=== PATIENT | male | born 1955 | race Caucasian/White ===

== ENCOUNTER → 2016-10-18 | Outpatient (REF) | payer OTHER, MEDICAID ==
[2016-10-18 19:04] LABS: ALBUMIN 3.5 GM/DL (3.2-5.2); ALBUMIN/GLOBULIN RATIO 0.95 (1.00-1.93); ALKALINE PHOSPHATASE 98 U/L (45-117); ALT/SGPT 34 U/L (12-78); ANION GAP 10 MEQ/L (8-16); AST/SGOT 39 U/L (15-37); BILIRUBIN,TOTAL 0.6 MG/DL (0.2-1.0); BLOOD UREA NITROGEN 9 MG/DL (7-18); CARBON DIOXIDE LEVEL 27 MEQ/L (21-32); CHLORIDE LEVEL 104 MEQ/L (98-107); CREATININE FOR GFR 0.54 MG/DL (0.70-1.30); GLOMERULAR FILTRATION RATE > 60.0 (>56); GLUCOSE, FASTING 98 MG/DL (70-105); POTASSIUM SERUM 4.3 MEQ/L (3.5-5.1); SODIUM LEVEL 141 MEQ/L (136-145); TOTAL PROTEIN 7.2 GM/DL (6.4-8.2)
[2016-10-18 19:24] LABS: BASO # 0.1 K/mm3 (0.0-0.2); BASO % 1.9 % (0.0-1.0); EOS # 0.1 K/mm3 (0.0-0.50); EOS % 1.9 % (0.0-3.0); LARGE UNSTAINED CELL # 0.2 K/mm3 (0.0-0.4); LARGE UNSTAINED CELL % 2.4 % (0.0-4.0); LYMPH # 1.8 K/mm3 (1.5-4.5); LYMPH % 24.7 % (24.0-44.0); MEAN CORPUSCULAR HEMOGLOBIN 35.7 pg (27.0-33.0); MEAN CORPUSCULAR HGB CONC 33.1 g/dl (32.0-36.5); MONO # 0.8 K/mm3 (0.0-0.8); MONO % 12.2 % (0.0-5.0); NEUTROPHILS # 3.9 K/mm3 (1.8-7.7); NEUTROPHILS % 56.9 % (36.0-66.0); PLATELET COUNT, AUTOMATED 204 k/mm3 (150-450); RED CELL DISTRIBUTION WIDTH 12.3 % (11.5-14.5); WHITE BLOOD COUNT 6.8 K/mm3 (4.0-10.0)
== END ==
LOC: M LAB REF 14:10
PROVIDERS: ATTEND Family Medicine Addiction Medicine
DX: S40.029A Contusion of unspecified upper arm, initial encounter (principal); X58.XXXA Exposure to other specified factors, initial encounter; Y92.89 Other specified places as the place of occurrence of the external cause; Y93.89 Activity, other specified; Y99.8 Other external cause status

== ENCOUNTER 2017-09-26 11:12 | Inpatient (IN) | payer MEDICARE, SELFPAY ==
[2017-09-26] MEDS: METOPROLOL TART 25 MG TABLET PO ×2 (11:27→22:22)
[2017-09-26] MEDS: METOPROLOL 5 MG/5 ML VIAL IV ×3 (11:31→12:19)
[2017-09-26 11:35] LABS: BASO # 0.1 10^3/uL (0.0-0.2); BASO % 0.4 % (0.0-1.0); EOS % 0.1 % (0.0-3.0); HEMATOCRIT 41.9 % (42.0-52.0); IMMATURE GRANULOCYTE % 1.3 % (0-3.0); LYMPH # 0.9 10^3/uL (1.5-4.5); LYMPH % 4.1 % (24.0-44.0); MEAN CORPUSCULAR HEMOGLOBIN 35.6 pg (27.0-33.0); MEAN CORPUSCULAR HGB CONC 35.8 g/dl (32.0-36.5); MEAN CORPUSCULAR VOLUME 99.5 fl (80.0-96.0); MONO % 10.1 % (0.0-5.0); NEUTROPHILS # 17.5 10^3/uL (1.8-7.7); PLATELET COUNT, AUTOMATED 205 10^3/uL (150-450); RED BLOOD COUNT 4.21 10^6/uL (4.30-6.10); RED CELL DISTRIBUTION WIDTH 11.1 % (11.5-14.5); WHITE BLOOD COUNT 20.9 10^3/uL (4.0-10.0)
[2017-09-26 11:57] LABS: AMMONIA 25 uMOL/L (<32)
[2017-09-26 11:57] LABS: ALBUMIN 2.4 GM/DL (3.2-5.2); ALKALINE PHOSPHATASE 91 U/L (45-117); ALT/SGPT 40 U/L (12-78); ANION GAP 24 MEQ/L (8-16); AST/SGOT 97 U/L (7-37); BILIRUBIN,DIRECT 0.6 MG/DL (0.0-0.2); BILIRUBIN,TOTAL 1.1 MG/DL (0.2-1.0); BLOOD UREA NITROGEN 15 MG/DL (7-18); CARBON DIOXIDE LEVEL 16 MEQ/L (21-32); CHLORIDE LEVEL 86 MEQ/L (98-107); CPK CREATINE PHOSPHOKINASE 482 U/L (39-308); CREATININE FOR GFR 1.17 MG/DL (0.70-1.30); ETHYL ALCOHOL (ETHANOL) 0.007 % (0.000-0.010); GLOMERULAR FILTRATION RATE > 60.0 (>49); GLUCOSE, FASTING 112 MG/DL (70-100); MONO # 2.1 10^3/uL (0.0-0.8); POSITIVE DIFF POS FLAG; POTASSIUM SERUM 3.1 MEQ/L (3.5-5.1); SODIUM LEVEL 126 MEQ/L (136-145); TOTAL PROTEIN 6.4 GM/DL (6.4-8.2); TROPONIN I 0.03 NG/ML (< 0.10)
[2017-09-26] MEDS: NS 1,000 ML IV ×2 (12:00→12:45)
[2017-09-26 12:03] LABS: CK-MB VALUE MASS 5.4 NG/ML (<3.6); MB/CK RELATIVE INDEX 1.12 (< OR =4)
[2017-09-26] MEDS: DIGOXIN INJ 0.5 MG/2 ML AMP (J1160) IV (12:32)
[2017-09-26 14:00] LABS: ABG BASE EXCESS -0.4 (-2.0-2.0); ABG HCO3 22.6 MEQ/L (22.0-26.0); ABG O2 SATURATION 96.2 % (95.0-99.0); ABG PARTIAL PRESSURE CO2 32.5 mmHg (35.0-45.0); ABG PARTIAL PRESSURE O2 84.7 mmHg (75.0-100.0); ABG STANDARD HCO3 24.2 MEQ/L (22.0-26.0); ABG TOTAL CO2 23.6 MEQ/L (23.0-31.0); ABG pH (ARTERIAL) 7.461 UNITS (7.350-7.450)
[2017-09-26 14:08] LABS: TROPONIN I 0.05 NG/ML (< 0.10)
[2017-09-26 14:20] LABS: CK-MB VALUE MASS 17.6 NG/ML (<3.6); CPK CREATINE PHOSPHOKINASE 2928 U/L (39-308)
[2017-09-26 14:26] LABS: LACTIC ACID SEPSIS PROTOCOL 3.2 MMOL/L (0.4-2.0)
[2017-09-26] MEDS: POTASSIUM CHLORIDE 10 MEQ SR TABLET PO ×2 (14:44→22:17)
[2017-09-26] MEDS: PIPERACILLIN/TAZOBACTAM SOD 3.375 GM in D5W MINI-BAG PLUS 50 ML IV (14:45)
[2017-09-26] MEDS ORDERED: IPRATROPIUM 0.5MG/ALBUTEROL 2.5MG INH SOL UD 3ML (DUONEB)(J7620) NEB (15:30)
[2017-09-26] MEDS ORDERED: OXAZEPAM 10 MG CAP PO (16:00)
[2017-09-26] MEDS ORDERED: ONDANSETRON 4MG/2ML VIAL (J2405) IV (16:00)
[2017-09-26] MEDS: SODIUM CHLORIDE HYPERTONIC 3% 15ML NEB SOL NEB ×3 (16:00→17:33)
[2017-09-26] MEDS: MULTIVITAMIN -ADULT INJECTION 10 ML, THIAMINE INJection 100 MG, FOLIC ACID 1 MG in NS 1... IV (16:56)
[2017-09-26] MEDS ORDERED: MOXIFLOXACIN HCL 400 MG in APPROPRIATE DILUENT 1 EA IV (17:00)
[2017-09-26 17:16] LABS: APPEARANCE, URINE CLEAR (CLEAR); BACTERIA, URINE AUTO NEGATIVE (NEGATIVE); BILIRUBIN, URINE AUTO NEGATIVE (NEGATIVE); BLOOD, URINE BLOOD 3+ (NEGATIVE); COLOR, URINE YELLOW (YELLOW); GLUCOSE, URINE (UA) AUTO NEGATIVE (NEGATIVE); KETONE, URINE AUTO NEGATIVE (NEGATIVE); LEUKOCYTE ESTERASE, URINE AUTO NEGATIVE (NEGATIVE); NITRITE, URINE AUTO NEGATIVE (NEGATIVE); PROTEIN, URINE AUTO NEGATIVE (NEGATIVE); RBC, URINE AUTO 1 /HPF (0-3); SPECIFIC GRAVITY URINE AUTO 1.004 (1.002-1.035); SQUAMOUS EPITHELIAL CELL UR AU 0 /HPF (0-6); UROBILINOGEN, URINE AUTO 0.2 mg/dL (0.0-2.0); WBC, URINE AUTO 1 /HPF (0-3)
[2017-09-26 17:23] LABS: OSMOLALITY URINE 179 MOSM/KG (500-800)
[2017-09-26 17:36] LABS: AMPHETAMINES LEVEL URINE NEGATIVE (NEGATIVE); BARBITURATES URINE NEGATIVE (NEGATIVE); BENZODIAZEPINES URINE NEGATIVE (NEGATIVE); CANNABINOIDS URINE NEGATIVE (NEGATIVE); CHLORIDE,RANDOM URINE 19 MEQ/L; COCAINE METABOLITE URINE NEGATIVE (NEGATIVE); CREATININE,RANDOM URINE 23.2 MG/DL; METHADONE URINE NEGATIVE (NEGATIVE); OPIATES URINE NEGATIVE (NEGATIVE); PHENCYCLIDINE URINE NEGATIVE (NEGATIVE); POTASSIUM RANDOM URINE 11.2 MEQ/L; SODIUM,RANDOM URINE 12 MEQ/L; URIC ACID,RANDOM URINE 76.7 MG/DL
[2017-09-26] MEDS: OXAZEPAM 10 MG CAP PO (18:00)
[2017-09-26 18:38] LABS: ANION GAP 11 MEQ/L (8-16); BLOOD UREA NITROGEN 14 MG/DL (7-18); CALCIUM LEVEL 8.1 MG/DL (8.8-10.2); CARBON DIOXIDE LEVEL 27 MEQ/L (21-32); CHLORIDE LEVEL 92 MEQ/L (98-107); CREATININE FOR GFR 0.74 MG/DL (0.70-1.30); GLOMERULAR FILTRATION RATE > 60.0 (>49); GLUCOSE, FASTING 97 MG/DL (70-100); MAGNESIUM LEVEL 2.6 MG/DL (1.8-2.4); POTASSIUM SERUM 3.3 MEQ/L (3.5-5.1); SODIUM LEVEL 130 MEQ/L (136-145); TROPONIN I 0.05 NG/ML (< 0.10)
[2017-09-26 18:44] LABS: CK-MB VALUE MASS 31.7 NG/ML (<3.6)
[2017-09-26 18:47] LABS: CPK CREATINE PHOSPHOKINASE 4499 U/L (39-308)
[2017-09-26] MEDS: IPRATROPIUM 0.5MG/ALBUTEROL 2.5MG INH SOL UD 3ML (DUONEB)(J7620) NEB (19:54)
[2017-09-26] MEDS: MOXIFLOXACIN HCL 400 MG in APPROPRIATE DILUENT 1 EA IV (22:16)
[2017-09-26] MEDS: ASPIRIN 81 MG ENTERIC TAB PO (22:16)
[2017-09-26] MEDS: SENOKOT S TAB PO ×2 (22:20→22:33)
[2017-09-26] MEDS: HEPARIN SOD (PORCINE) 5000 UNITS/ML VIAL SC (22:23)
[2017-09-26] MEDS: NICOTINE 14 MG/24 HR TRANSDERMAL TD (22:23)
[2017-09-26 23:03] LABS: ANION GAP 9 MEQ/L (8-16); BLOOD UREA NITROGEN 13 MG/DL (7-18); CALCIUM LEVEL 8.4 MG/DL (8.8-10.2); CARBON DIOXIDE LEVEL 29 MEQ/L (21-32); CHLORIDE LEVEL 93 MEQ/L (98-107); CREATININE FOR GFR 0.61 MG/DL (0.70-1.30); GLOMERULAR FILTRATION RATE > 60.0 (>49); GLUCOSE, FASTING 84 MG/DL (70-100); MAGNESIUM LEVEL 2.4 MG/DL (1.8-2.4); POTASSIUM SERUM 3.5 MEQ/L (3.5-5.1); SODIUM LEVEL 131 MEQ/L (136-145)
[2017-09-27] MEDS: OXAZEPAM 10 MG CAP PO ×2 (00:02→06:06)
[2017-09-27] MEDS: KCL 40MEQ in NS 1000ML 1,000 ML IV (00:20)
[2017-09-27] MEDS: IPRATROPIUM 0.5MG/ALBUTEROL 2.5MG INH SOL UD 3ML (DUONEB)(J7620) NEB ×4 (02:20→19:58)
[2017-09-27 02:45] LABS: BLOOD UREA NITROGEN 15 MG/DL (7-18); CALCIUM LEVEL 8.1 MG/DL (8.8-10.2); CARBON DIOXIDE LEVEL 26 MEQ/L (21-32); CHLORIDE LEVEL 94 MEQ/L (98-107); CREATININE FOR GFR 0.62 MG/DL (0.70-1.30); GLUCOSE, FASTING 74 MG/DL (70-100); MAGNESIUM LEVEL 2.2 MG/DL (1.8-2.4); POTASSIUM SERUM 3.9 MEQ/L (3.5-5.1); TROPONIN I 0.04 NG/ML (< 0.10)
[2017-09-27 02:55] LABS: CK-MB VALUE MASS 32.1 NG/ML (<3.6); CPK CREATINE PHOSPHOKINASE 4254 U/L (39-308); MB/CK RELATIVE INDEX 0.75 (< OR =4)
[2017-09-27] MEDS: METOPROLOL TART 25 MG TABLET PO ×3 (06:05→21:22)
[2017-09-27 06:46] LABS: HEMATOCRIT 39.3 % (42.0-52.0); HEMOGLOBIN 13.7 g/dl (13.5-17.5); MEAN CORPUSCULAR HEMOGLOBIN 35.9 pg (27.0-33.0); MEAN CORPUSCULAR HGB CONC 34.9 g/dl (32.0-36.5); MEAN CORPUSCULAR VOLUME 102.9 fl (80.0-96.0); PLATELET COUNT, AUTOMATED 134 10^3/uL (150-450); RED BLOOD COUNT 3.82 10^6/uL (4.30-6.10); WHITE BLOOD COUNT 14.5 10^3/uL (4.0-10.0)
[2017-09-27 07:10] LABS: ANION GAP 10 MEQ/L (8-16); SODIUM LEVEL 130 MEQ/L (136-145)
[2017-09-27] MEDS: SODIUM CHLORIDE HYPERTONIC 3% 15ML NEB SOL NEB ×3 (08:07→15:00)
[2017-09-27 08:30] LABS: ALBUMIN 1.9 GM/DL (3.2-5.2); ALBUMIN/GLOBULIN RATIO 0.61 (1.00-1.93); ALKALINE PHOSPHATASE 68 U/L (45-117); ALT/SGPT 52 U/L (12-78); ANION GAP 13 MEQ/L (8-16); AST/SGOT 188 U/L (7-37); BILIRUBIN,TOTAL 0.7 MG/DL (0.2-1.0); BLOOD UREA NITROGEN 13 MG/DL (7-18); CALCIUM LEVEL 7.4 MG/DL (8.8-10.2); CARBON DIOXIDE LEVEL 23 MEQ/L (21-32); CHLORIDE LEVEL 98 MEQ/L (98-107); CREATININE FOR GFR 0.38 MG/DL (0.70-1.30); GLOMERULAR FILTRATION RATE > 60.0 (>49); GLUCOSE, FASTING 75 MG/DL (70-100); MAGNESIUM LEVEL 2.3 MG/DL (1.8-2.4); POTASSIUM SERUM 3.4 MEQ/L (3.5-5.1); SODIUM LEVEL 134 MEQ/L (136-145)
[2017-09-27] MEDS: HEPARIN SOD (PORCINE) 5000 UNITS/ML VIAL SC ×2 (09:00→20:23)
[2017-09-27] MEDS ORDERED: EPINEPHrine 1MG/10ML SYRINGE 1.5IN As Ordered (09:39)
[2017-09-27] MEDS ORDERED: LIDOCAINE 2% MDV 20 ML VIAL As Ordered (09:39)
[2017-09-27] MEDS ORDERED: MORPHINE 10 MG/ML 1ML VIAL (J2270) As Ordered (10:19)
[2017-09-27] MEDS ORDERED: MIDAZOLAM INJ 2 MG/2 ML VIAL (J2250) As Ordered ×4 (10:20→10:21)
[2017-09-27 10:50] LABS: ANION GAP 10 MEQ/L (8-16); BLOOD UREA NITROGEN 12 MG/DL (7-18); CALCIUM LEVEL 7.6 MG/DL (8.8-10.2); CARBON DIOXIDE LEVEL 24 MEQ/L (21-32); CHLORIDE LEVEL 98 MEQ/L (98-107); CREATININE FOR GFR 0.45 MG/DL (0.70-1.30); GLOMERULAR FILTRATION RATE > 60.0 (>49); GLUCOSE, FASTING 80 MG/DL (70-100); MAGNESIUM LEVEL 2.3 MG/DL (1.8-2.4); POTASSIUM SERUM 3.7 MEQ/L (3.5-5.1); SODIUM LEVEL 132 MEQ/L (136-145); TROPONIN I 0.02 NG/ML (< 0.10)
[2017-09-27 11:00] LABS: CK-MB VALUE MASS 17.5 NG/ML (<3.6); CPK CREATINE PHOSPHOKINASE 2019 U/L (39-308); MB/CK RELATIVE INDEX 0.86 (< OR =4)
[2017-09-27] MEDS: LIDOCAINE 1% SDV 5 ML VIAL XX (11:47)
[2017-09-27] MEDS: ALBUTEROL SULFATE 2.5 MG/0.5 ML INH NEB SOLN INH (11:47)
[2017-09-27] MEDS: MIDAZOLAM INJ 2 MG/2 ML VIAL (J2250) IV (12:25)
[2017-09-27] MEDS: DIGOXIN INJ 0.5 MG/2 ML AMP (J1160) IV ×2 (13:34→15:22)
[2017-09-27 14:58] LABS: ANION GAP 12 MEQ/L (8-16); BLOOD UREA NITROGEN 14 MG/DL (7-18); CALCIUM LEVEL 8.7 MG/DL (8.8-10.2); CARBON DIOXIDE LEVEL 26 MEQ/L (21-32); CHLORIDE LEVEL 96 MEQ/L (98-107); CREATININE FOR GFR 0.61 MG/DL (0.70-1.30); GLOMERULAR FILTRATION RATE > 60.0 (>49); GLUCOSE, FASTING 91 MG/DL (70-100); MAGNESIUM LEVEL 2.5 MG/DL (1.8-2.4); POTASSIUM SERUM 3.7 MEQ/L (3.5-5.1); SODIUM LEVEL 134 MEQ/L (136-145)
[2017-09-27] MEDS: NICOTINE 14 MG/24 HR TRANSDERMAL TD (15:10)
[2017-09-27] MEDS: THIAMINE 100 MG TAB PO (15:11)
[2017-09-27] MEDS: ASPIRIN 81 MG ENTERIC TAB PO (15:11)
[2017-09-27] MEDS: FOLIC ACID 1 MG TAB PO (15:11)
[2017-09-27] MEDS: MULTIVITAMINS/MINERALS THERAP 1 TAB PO (15:11)
[2017-09-27] MEDS: SENOKOT S TAB PO ×2 (15:12→20:23)
[2017-09-27] MEDS: PIPERACILLIN/TAZOBACTAM SOD 3.375 GM in D5W MINI-BAG PLUS 50 ML IV ×2 (15:19→20:22)
[2017-09-27 18:39] LABS: ANION GAP 10 MEQ/L (8-16); BLOOD UREA NITROGEN 12 MG/DL (7-18); CALCIUM LEVEL 8.5 MG/DL (8.8-10.2); CARBON DIOXIDE LEVEL 29 MEQ/L (21-32); CHLORIDE LEVEL 94 MEQ/L (98-107); CREATININE FOR GFR 0.54 MG/DL (0.70-1.30); GLOMERULAR FILTRATION RATE > 60.0 (>49); GLUCOSE, FASTING 117 MG/DL (70-100); MAGNESIUM LEVEL 2.2 MG/DL (1.8-2.4); POTASSIUM SERUM 3.6 MEQ/L (3.5-5.1); SODIUM LEVEL 133 MEQ/L (136-145)
[2017-09-27 22:03] LABS: ANION GAP 8 MEQ/L (8-16); BLOOD UREA NITROGEN 12 MG/DL (7-18); CALCIUM LEVEL 7.8 MG/DL (8.8-10.2); CARBON DIOXIDE LEVEL 29 MEQ/L (21-32); CHLORIDE LEVEL 96 MEQ/L (98-107); CREATININE FOR GFR 0.63 MG/DL (0.70-1.30); GLOMERULAR FILTRATION RATE > 60.0 (>49); GLUCOSE, FASTING 153 MG/DL (70-100); MAGNESIUM LEVEL 2.1 MG/DL (1.8-2.4); POTASSIUM SERUM 3.3 MEQ/L (3.5-5.1); SODIUM LEVEL 133 MEQ/L (136-145)
[2017-09-27] MEDS: POTASSIUM CHLORIDE 10 MEQ SR TABLET PO (22:19)
[2017-09-28] MEDS: IPRATROPIUM 0.5MG/ALBUTEROL 2.5MG INH SOL UD 3ML (DUONEB)(J7620) NEB ×4 (01:18→21:00)
[2017-09-28] MEDS: PIPERACILLIN/TAZOBACTAM SOD 3.375 GM in D5W MINI-BAG PLUS 50 ML IV ×4 (01:52→20:23)
[2017-09-28] MEDS: METOPROLOL TART 25 MG TABLET PO ×3 (05:10→22:32)
[2017-09-28 05:50] LABS: HEMATOCRIT 35.9 % (42.0-52.0); HEMOGLOBIN 12.7 g/dl (13.5-17.5); MEAN CORPUSCULAR HEMOGLOBIN 36.1 pg (27.0-33.0); MEAN CORPUSCULAR HGB CONC 35.4 g/dl (32.0-36.5); PLATELET COUNT, AUTOMATED 158 10^3/uL (150-450); RED BLOOD COUNT 3.52 10^6/uL (4.30-6.10); RED CELL DISTRIBUTION WIDTH 11.1 % (11.5-14.5); WHITE BLOOD COUNT 10.3 10^3/uL (4.0-10.0)
[2017-09-28 06:07] LABS: ALBUMIN 1.8 GM/DL (3.2-5.2); ALBUMIN/GLOBULIN RATIO 0.49 (1.00-1.93); ALKALINE PHOSPHATASE 85 U/L (45-117); ALT/SGPT 66 U/L (12-78); ANION GAP 8 MEQ/L (8-16); AST/SGOT 159 U/L (7-37); BILIRUBIN,TOTAL 0.6 MG/DL (0.2-1.0); BLOOD UREA NITROGEN 7 MG/DL (7-18); CALCIUM LEVEL 7.9 MG/DL (8.8-10.2); CARBON DIOXIDE LEVEL 27 MEQ/L (21-32); CHLORIDE LEVEL 96 MEQ/L (98-107); CREATININE FOR GFR 0.38 MG/DL (0.70-1.30); GLOMERULAR FILTRATION RATE > 60.0 (>49); GLUCOSE, FASTING 101 MG/DL (70-100); SODIUM LEVEL 131 MEQ/L (136-145); TOTAL PROTEIN 5.5 GM/DL (6.4-8.2)
[2017-09-28 06:17] LABS: POTASSIUM SERUM 2.9 MEQ/L (3.5-5.1)
[2017-09-28] MEDS: POTASSIUM CHLORIDE 10 MEQ SR TABLET PO ×2 (06:42→09:50)
[2017-09-28] MEDS ORDERED: SLF 3 ML SYR IV (08:45)
[2017-09-28] MEDS: SENOKOT S TAB PO ×2 (08:57→20:23)
[2017-09-28] MEDS: ASPIRIN 81 MG ENTERIC TAB PO (08:57)
[2017-09-28] MEDS: THIAMINE 100 MG TAB PO (08:58)
[2017-09-28] MEDS: MULTIVITAMINS/MINERALS THERAP 1 TAB PO (08:58)
[2017-09-28] MEDS: NICOTINE 14 MG/24 HR TRANSDERMAL TD (08:58)
[2017-09-28] MEDS: FOLIC ACID 1 MG TAB PO (08:58)
[2017-09-28] MEDS: HEPARIN SOD (PORCINE) 5000 UNITS/ML VIAL SC ×2 (08:58→20:23)
[2017-09-28] MEDS: DIGOXIN 0.125 MG TAB PO (09:50)
[2017-09-28] MEDS: SLF 3 ML SYR IV ×2 (13:57→22:31)
[2017-09-29] MEDS: PIPERACILLIN/TAZOBACTAM SOD 3.375 GM in D5W MINI-BAG PLUS 50 ML IV ×4 (01:50→20:12)
[2017-09-29] MEDS: IPRATROPIUM 0.5MG/ALBUTEROL 2.5MG INH SOL UD 3ML (DUONEB)(J7620) NEB ×4 (01:53→20:30)
[2017-09-29] MEDS: LORazepam 2 MG TAB PO (02:13)
[2017-09-29] MEDS: SLF 3 ML SYR IV ×3 (05:14→22:06)
[2017-09-29] MEDS: METOPROLOL TART 25 MG TABLET PO ×3 (05:14→22:06)
[2017-09-29 05:37] LABS: HEMATOCRIT 36.4 % (42.0-52.0); HEMOGLOBIN 12.9 g/dl (13.5-17.5); MEAN CORPUSCULAR HEMOGLOBIN 35.4 pg (27.0-33.0); MEAN CORPUSCULAR HGB CONC 35.4 g/dl (32.0-36.5); PLATELET COUNT, AUTOMATED 196 10^3/uL (150-450); RED BLOOD COUNT 3.64 10^6/uL (4.30-6.10); RED CELL DISTRIBUTION WIDTH 10.6 % (11.5-14.5); WHITE BLOOD COUNT 9.7 10^3/uL (4.0-10.0)
[2017-09-29 06:08] LABS: ALBUMIN 1.8 GM/DL (3.2-5.2); ALBUMIN/GLOBULIN RATIO 0.46 (1.00-1.93); ALKALINE PHOSPHATASE 90 U/L (45-117); ALT/SGPT 71 U/L (12-78); ANION GAP 8 MEQ/L (8-16); AST/SGOT 126 U/L (7-37); BILIRUBIN,TOTAL 0.6 MG/DL (0.2-1.0); BLOOD UREA NITROGEN 4 MG/DL (7-18); C REACTIVE PROTEIN QUANTITATIV 9.11 MG/DL (0.00-0.30); CALCIUM LEVEL 8.2 MG/DL (8.8-10.2); CARBON DIOXIDE LEVEL 31 MEQ/L (21-32); CHLORIDE LEVEL 94 MEQ/L (98-107); GLOMERULAR FILTRATION RATE > 60.0 (>49); GLUCOSE, FASTING 99 MG/DL (70-100); POTASSIUM SERUM 3.2 MEQ/L (3.5-5.1); SODIUM LEVEL 133 MEQ/L (136-145); TOTAL PROTEIN 5.7 GM/DL (6.4-8.2)
[2017-09-29] MEDS: NEUTRA-PHOS 1.25 GM PACKET PO ×3 (08:20→17:08)
[2017-09-29] MEDS: HEPARIN SOD (PORCINE) 5000 UNITS/ML VIAL SC ×2 (08:20→20:13)
[2017-09-29] MEDS: NICOTINE 14 MG/24 HR TRANSDERMAL TD (08:20)
[2017-09-29] MEDS: FOLIC ACID 1 MG TAB PO (08:21)
[2017-09-29] MEDS: DIGOXIN 0.125 MG TAB PO (08:21)
[2017-09-29] MEDS: ASPIRIN 81 MG ENTERIC TAB PO (08:21)
[2017-09-29] MEDS: SENOKOT S TAB PO ×2 (08:21→20:13)
[2017-09-29] MEDS: POTASSIUM CHLORIDE 10 MEQ SR TABLET PO ×2 (08:21→20:13)
[2017-09-29] MEDS: MULTIVITAMINS/MINERALS THERAP 1 TAB PO (08:21)
[2017-09-29] MEDS: THIAMINE 100 MG TAB PO (08:21)
[2017-09-30] MEDS: IPRATROPIUM 0.5MG/ALBUTEROL 2.5MG INH SOL UD 3ML (DUONEB)(J7620) NEB ×4 (01:43→19:29)
[2017-09-30] MEDS: PIPERACILLIN/TAZOBACTAM SOD 3.375 GM in D5W MINI-BAG PLUS 50 ML IV ×4 (01:50→21:29)
[2017-09-30 05:11] LABS: HEMATOCRIT 37.9 % (42.0-52.0); MEAN CORPUSCULAR HEMOGLOBIN 35.5 pg (27.0-33.0); MEAN CORPUSCULAR HGB CONC 34.3 g/dl (32.0-36.5); MEAN CORPUSCULAR VOLUME 103.6 fl (80.0-96.0); PLATELET COUNT, AUTOMATED 232 10^3/uL (150-450); RED BLOOD COUNT 3.66 10^6/uL (4.30-6.10); WHITE BLOOD COUNT 8.6 10^3/uL (4.0-10.0)
[2017-09-30 05:29] LABS: ALBUMIN 1.8 GM/DL (3.2-5.2); ALBUMIN/GLOBULIN RATIO 0.44 (1.00-1.93); ALKALINE PHOSPHATASE 88 U/L (45-117); ALT/SGPT 66 U/L (12-78); ANION GAP 6 MEQ/L (8-16); AST/SGOT 80 U/L (7-37); BILIRUBIN,TOTAL 0.4 MG/DL (0.2-1.0); BLOOD UREA NITROGEN 4 MG/DL (7-18); C REACTIVE PROTEIN QUANTITATIV 7.13 MG/DL (0.00-0.30); CALCIUM LEVEL 8.2 MG/DL (8.8-10.2); CARBON DIOXIDE LEVEL 33 MEQ/L (21-32); CHLORIDE LEVEL 96 MEQ/L (98-107); CREATININE FOR GFR 0.48 MG/DL (0.70-1.30); GLOMERULAR FILTRATION RATE > 60.0 (>49); GLUCOSE, FASTING 95 MG/DL (70-100); POTASSIUM SERUM 3.5 MEQ/L (3.5-5.1); SODIUM LEVEL 135 MEQ/L (136-145); TOTAL PROTEIN 5.9 GM/DL (6.4-8.2)
[2017-09-30] MEDS: SLF 3 ML SYR IV ×3 (05:53→21:32)
[2017-09-30] MEDS: METOPROLOL TART 25 MG TABLET PO ×2 (05:53→13:31)
[2017-09-30] MEDS: ASPIRIN 81 MG ENTERIC TAB PO (09:14)
[2017-09-30] MEDS: HEPARIN SOD (PORCINE) 5000 UNITS/ML VIAL SC ×2 (09:14→21:31)
[2017-09-30] MEDS: NEUTRA-PHOS 1.25 GM PACKET PO ×3 (09:14→18:07)
[2017-09-30] MEDS: THIAMINE 100 MG TAB PO (09:15)
[2017-09-30] MEDS: DIGOXIN 0.125 MG TAB PO (09:15)
[2017-09-30] MEDS: SENOKOT S TAB PO ×2 (09:15→21:30)
[2017-09-30] MEDS: FOLIC ACID 1 MG TAB PO (09:15)
[2017-09-30] MEDS: POTASSIUM CHLORIDE 10 MEQ SR TABLET PO ×2 (09:15→21:30)
[2017-09-30] MEDS: MULTIVITAMINS/MINERALS THERAP 1 TAB PO (09:15)
[2017-09-30] MEDS: NICOTINE 14 MG/24 HR TRANSDERMAL TD (09:16)
[2017-09-30 09:32] LABS: DIGOXIN LEVEL 0.7 NG/ML (0.5-2.0)
[2017-09-30] MEDS: METOPROLOL TART 50 MG TAB PO (21:30)
[2017-10-01] MEDS: PIPERACILLIN/TAZOBACTAM SOD 3.375 GM in D5W MINI-BAG PLUS 50 ML IV ×2 (01:25→08:45)
[2017-10-01] MEDS: IPRATROPIUM 0.5MG/ALBUTEROL 2.5MG INH SOL UD 3ML (DUONEB)(J7620) NEB ×4 (02:36→21:04)
[2017-10-01] MEDS: SLF 3 ML SYR IV ×3 (05:34→20:35)
[2017-10-01 07:15] LABS: HEMATOCRIT 38.3 % (42.0-52.0); HEMOGLOBIN 13.3 g/dl (13.5-17.5); MEAN CORPUSCULAR HGB CONC 34.7 g/dl (32.0-36.5); MEAN CORPUSCULAR VOLUME 100.8 fl (80.0-96.0); PLATELET COUNT, AUTOMATED 281 10^3/uL (150-450); RED CELL DISTRIBUTION WIDTH 11.3 % (11.5-14.5); WHITE BLOOD COUNT 8.5 10^3/uL (4.0-10.0)
[2017-10-01 07:33] LABS: ALBUMIN 1.9 GM/DL (3.2-5.2); ALBUMIN/GLOBULIN RATIO 0.43 (1.00-1.93); ALKALINE PHOSPHATASE 87 U/L (45-117); ALT/SGPT 59 U/L (12-78); ANION GAP 9 MEQ/L (8-16); AST/SGOT 60 U/L (7-37); BILIRUBIN,TOTAL 0.4 MG/DL (0.2-1.0); BLOOD UREA NITROGEN 2 MG/DL (7-18); C REACTIVE PROTEIN QUANTITATIV 5.61 MG/DL (0.00-0.30); CALCIUM LEVEL 8.6 MG/DL (8.8-10.2); CARBON DIOXIDE LEVEL 29 MEQ/L (21-32); CHLORIDE LEVEL 99 MEQ/L (98-107); CREATININE FOR GFR 0.42 MG/DL (0.70-1.30); GLOMERULAR FILTRATION RATE > 60.0 (>49); GLUCOSE, FASTING 97 MG/DL (70-100); POTASSIUM SERUM 3.9 MEQ/L (3.5-5.1); SODIUM LEVEL 137 MEQ/L (136-145); TOTAL PROTEIN 6.3 GM/DL (6.4-8.2)
[2017-10-01] MEDS: NEUTRA-PHOS 1.25 GM PACKET PO ×3 (08:45→18:02)
[2017-10-01] MEDS: THIAMINE 100 MG TAB PO (08:46)
[2017-10-01] MEDS: NICOTINE 14 MG/24 HR TRANSDERMAL TD (08:46)
[2017-10-01] MEDS: SENOKOT S TAB PO ×2 (08:46→20:34)
[2017-10-01] MEDS: MULTIVITAMINS/MINERALS THERAP 1 TAB PO (08:46)
[2017-10-01] MEDS: POTASSIUM CHLORIDE 10 MEQ SR TABLET PO (08:46)
[2017-10-01] MEDS: ASPIRIN 81 MG ENTERIC TAB PO (08:46)
[2017-10-01] MEDS: METOPROLOL TART 50 MG TAB PO ×2 (08:46→20:35)
[2017-10-01] MEDS: HEPARIN SOD (PORCINE) 5000 UNITS/ML VIAL SC ×2 (08:47→20:35)
[2017-10-01] MEDS: FOLIC ACID 1 MG TAB PO (08:47)
[2017-10-01] MEDS: DIGOXIN 0.125 MG TAB PO (08:47)
[2017-10-01] MEDS: ACETAMINOPHEN 500 MG TAB PO (12:34)
[2017-10-01] MEDS: AUGMENTIN 875 MG TAB PO (20:34)
[2017-10-02] MEDS: IPRATROPIUM 0.5MG/ALBUTEROL 2.5MG INH SOL UD 3ML (DUONEB)(J7620) NEB ×5 (01:31→20:57)
[2017-10-02 05:59] LABS: HEMATOCRIT 36.9 % (42.0-52.0); MEAN CORPUSCULAR HEMOGLOBIN 35.7 pg (27.0-33.0); MEAN CORPUSCULAR HGB CONC 35.2 g/dl (32.0-36.5); MEAN CORPUSCULAR VOLUME 101.4 fl (80.0-96.0); PLATELET COUNT, AUTOMATED 302 10^3/uL (150-450); RED BLOOD COUNT 3.64 10^6/uL (4.30-6.10); RED CELL DISTRIBUTION WIDTH 11.5 % (11.5-14.5); WHITE BLOOD COUNT 11.4 10^3/uL (4.0-10.0)
[2017-10-02 06:21] LABS: ALBUMIN 1.9 GM/DL (3.2-5.2); ALBUMIN/GLOBULIN RATIO 0.45 (1.00-1.93); ALKALINE PHOSPHATASE 86 U/L (45-117); ALT/SGPT 50 U/L (12-78); ANION GAP 8 MEQ/L (8-16); AST/SGOT 45 U/L (7-37); BILIRUBIN,TOTAL 0.3 MG/DL (0.2-1.0); BLOOD UREA NITROGEN 3 MG/DL (7-18); CALCIUM LEVEL 8.7 MG/DL (8.8-10.2); CARBON DIOXIDE LEVEL 29 MEQ/L (21-32); CHLORIDE LEVEL 98 MEQ/L (98-107); CREATININE FOR GFR 0.39 MG/DL (0.70-1.30); GLOMERULAR FILTRATION RATE > 60.0 (>49); GLUCOSE, FASTING 88 MG/DL (70-100); SODIUM LEVEL 135 MEQ/L (136-145); TOTAL PROTEIN 6.1 GM/DL (6.4-8.2)
[2017-10-02] MEDS: SLF 3 ML SYR IV ×3 (06:46→20:23)
[2017-10-02] MEDS: NEUTRA-PHOS 1.25 GM PACKET PO ×3 (09:21→18:14)
[2017-10-02] MEDS: SENOKOT S TAB PO ×2 (09:22→20:23)
[2017-10-02] MEDS: FOLIC ACID 1 MG TAB PO (09:22)
[2017-10-02] MEDS: HEPARIN SOD (PORCINE) 5000 UNITS/ML VIAL SC ×2 (09:22→20:23)
[2017-10-02] MEDS: AUGMENTIN 875 MG TAB PO ×2 (09:22→20:23)
[2017-10-02] MEDS: THIAMINE 100 MG TAB PO (09:22)
[2017-10-02] MEDS: ASPIRIN 81 MG ENTERIC TAB PO (09:22)
[2017-10-02] MEDS: MULTIVITAMINS/MINERALS THERAP 1 TAB PO (09:22)
[2017-10-02] MEDS: NICOTINE 14 MG/24 HR TRANSDERMAL TD (09:28)
[2017-10-02] MEDS: DIGOXIN 0.125 MG TAB PO (09:28)
[2017-10-02] MEDS: METOPROLOL TART 50 MG TAB PO ×2 (09:50→20:23)
[2017-10-02] MEDS: ACETAMINOPHEN 500 MG TAB PO (20:46)
[2017-10-03] MEDS: IPRATROPIUM 0.5MG/ALBUTEROL 2.5MG INH SOL UD 3ML (DUONEB)(J7620) NEB ×3 (02:26→13:38)
[2017-10-03] MEDS: SLF 3 ML SYR IV ×2 (05:11→14:00)
[2017-10-03 06:07] LABS: HEMATOCRIT 39.4 % (42.0-52.0); HEMOGLOBIN 13.3 g/dl (13.5-17.5); MEAN CORPUSCULAR HEMOGLOBIN 34.6 pg (27.0-33.0); MEAN CORPUSCULAR HGB CONC 33.8 g/dl (32.0-36.5); MEAN CORPUSCULAR VOLUME 102.6 fl (80.0-96.0); PLATELET COUNT, AUTOMATED 294 10^3/uL (150-450); RED BLOOD COUNT 3.84 10^6/uL (4.30-6.10); RED CELL DISTRIBUTION WIDTH 11.4 % (11.5-14.5); WHITE BLOOD COUNT 7.2 10^3/uL (4.0-10.0)
[2017-10-03 06:31] LABS: ALBUMIN 2.1 GM/DL (3.2-5.2); ALKALINE PHOSPHATASE 94 U/L (45-117); ALT/SGPT 41 U/L (12-78); ANION GAP 7 MEQ/L (8-16); AST/SGOT 28 U/L (7-37); BILIRUBIN,TOTAL 0.3 MG/DL (0.2-1.0); BLOOD UREA NITROGEN 5 MG/DL (7-18); CALCIUM LEVEL 9.1 MG/DL (8.8-10.2); CARBON DIOXIDE LEVEL 29 MEQ/L (21-32); CHLORIDE LEVEL 101 MEQ/L (98-107); CREATININE FOR GFR 0.39 MG/DL (0.70-1.30); GLOMERULAR FILTRATION RATE > 60.0 (>49); GLUCOSE, FASTING 95 MG/DL (70-100); POTASSIUM SERUM 3.8 MEQ/L (3.5-5.1); SODIUM LEVEL 137 MEQ/L (136-145); TOTAL PROTEIN 6.3 GM/DL (6.4-8.2)
[2017-10-03] MEDS: METOPROLOL TART 50 MG TAB PO (09:28)
[2017-10-03] MEDS: DIGOXIN 0.125 MG TAB PO (09:28)
[2017-10-03] MEDS: NEUTRA-PHOS 1.25 GM PACKET PO ×2 (10:03→12:33)
[2017-10-03] MEDS: HEPARIN SOD (PORCINE) 5000 UNITS/ML VIAL SC (10:04)
[2017-10-03] MEDS: SENOKOT S TAB PO (10:04)
[2017-10-03] MEDS: AUGMENTIN 875 MG TAB PO (10:05)
[2017-10-03] MEDS: FOLIC ACID 1 MG TAB PO (10:05)
[2017-10-03] MEDS: THIAMINE 100 MG TAB PO (10:05)
[2017-10-03] MEDS: ASPIRIN 81 MG ENTERIC TAB PO (10:05)
[2017-10-03] MEDS: MULTIVITAMINS/MINERALS THERAP 1 TAB PO (10:06)
[2017-10-03] MEDS: NICOTINE 14 MG/24 HR TRANSDERMAL TD (10:06)
== END 2017-10-03 15:10 | disposition home or self-care (01) | DRG 166 ==
LOC: M MSPAV 09-30 12:35 → M ED 11:12 → M ED INP 15:47 → M PCU 21:28
PROC: 0BBC8ZX Excision of Right Upper Lung Lobe, Via Natural or Artificial Opening Endoscopic, Diagnostic (ICD-10-PCS; principal; 2017-09-27 10:30)
PROC: 0BBF8ZX Excision of Right Lower Lung Lobe, Via Natural or Artificial Opening Endoscopic, Diagnostic (ICD-10-PCS; 2017-09-27 10:30)
DX: J85.1 Abscess of lung with pneumonia (principal); J69.0 Pneumonitis due to inhalation of food and vomit; E43 Unspecified severe protein-calorie malnutrition; E87.1 Hypo-osmolality and hyponatremia; M62.82 Rhabdomyolysis; E87.2 Acidosis; I48.91 Unspecified atrial fibrillation; F17.210 Nicotine dependence, cigarettes, uncomplicated; R55 Syncope and collapse; E87.6 Hypokalemia; G40.909 Epilepsy, unspecified, not intractable, without status epilepticus; R91.8 Other nonspecific abnormal finding of lung field; R33.9 Retention of urine, unspecified

== ENCOUNTER 2018-06-03 19:06 | Emergency (ER) | payer MEDICARE ==
[~2018-06-03] VITALS: Ht 185.4 cm; Wt 72.7 kg
[~2018-06-03 19:06] MED LIST: ALBU83IN NEB; AMOX875T2 PO; ASPI81TAEC PO; DIGO0.12 PO; LEVAINH INH; LOPR1TAB6 PO; NEBUMIS2 XX; NICO14PA TD
[2018-06-03] MEDS ORDERED: NS 1,000 ML IV ONE (20:00)
[2018-06-03] MEDS ORDERED: METOPROLOL 5 MG/5 ML VIAL IV SCH (20:15)
[2018-06-03 20:19] VITALS: BP 114/67
[2018-06-03 20:40] LABS: INR 1.1; PARTIAL THROMBOPLASTIN TIME 30.4 SECONDS (25.4-37.6); PROTHROMBIN TIME 14.3 SECONDS (12.1-14.4)
[2018-06-03 20:44] LABS: BASO # 0.1 10^3/uL (0.0-0.2); BASO % 0.6 % (0.0-1.0); EOS % 0.2 % (0.0-3.0); HEMATOCRIT 41.4 % (42.0-52.0); HEMOGLOBIN 15.5 g/dl (13.5-17.5); LYMPH # 2.3 10^3/uL (1.5-4.5); LYMPH % 14.7 % (24.0-44.0); MEAN CORPUSCULAR HEMOGLOBIN 34.1 pg (27.0-33.0); MEAN CORPUSCULAR VOLUME 91.2 fl (80.0-96.0); MONO # 1.9 10^3/uL (0.0-0.8); MONO % 11.8 % (0.0-5.0); NEUTROPHILS # 11.3 10^3/uL (1.8-7.7); NEUTROPHILS % 70.9 % (36.0-66.0); PLATELET COUNT, AUTOMATED 223 10^3/uL (150-450); RED BLOOD COUNT 4.54 10^6/uL (4.30-6.10)
[2018-06-03 20:51] LABS: MEAN CORPUSCULAR HGB CONC 37.4 g/dl (32.0-36.5)
[2018-06-03 20:59] LABS: ALBUMIN 2.9 GM/DL (3.2-5.2); ALT/SGPT 44 U/L (12-78); BILIRUBIN,DIRECT 0.5 MG/DL (0.0-0.2); BILIRUBIN,TOTAL 1.2 MG/DL (0.2-1.0); BLOOD UREA NITROGEN 8 MG/DL (7-18); C REACTIVE PROTEIN QUANTITATIV 5.16 MG/DL (0.00-0.30); CALCIUM LEVEL 8.5 MG/DL (8.8-10.2); CARBON DIOXIDE LEVEL 25 MEQ/L (21-32); CHLORIDE LEVEL 80 MEQ/L (98-107); CPK CREATINE PHOSPHOKINASE 178 U/L (39-308); FREE T4 1.61 NG/DL (0.76-1.46); GLOMERULAR FILTRATION RATE > 60.0 (>49); GLUCOSE, FASTING 102 MG/DL (70-100); MB/CK RELATIVE INDEX 1.24 (< OR =4); POTASSIUM SERUM 3.1 MEQ/L (3.5-5.1); SODIUM LEVEL 117 MEQ/L (136-145); THYROID STIMULATING HORMONE 0.961 uIU/ML (0.358-3.740); TOTAL PROTEIN 6.1 GM/DL (6.4-8.2); TROPONIN I < 0.02 NG/ML (< 0.10)
[2018-06-03 21:00] VITALS: BP 108/65
[2018-06-03] MEDS ORDERED: METOPROLOL TART 25 MG TABLET PO ONE (21:15)
[2018-06-03 21:19] LABS: ERYTHROCYTE SEDIMENTATION RATE 12 mm/hr (0-20)
[2018-06-03] MEDS ORDERED: METO1TAB87 PO (21:29)
--- NOTE | 2018-06-03 21:40 | ECGEPIP ---
Stationary ECG Study [facility] - ED Test Date: 2018-06-03 Pat Name: AGUSTÍN SPENCE Department: Room: - Gender: M [employer]: daren : [id number] Requested By: LILLI Rico Order Number: [id number] Reading MD: Gold Victoria Measurements Intervals Clifford Rate: 132 P: [place]: 0 QRS: 54 QRSD: 97 T: 40 QT: 294 QTc: 436 Interpretive Statements ATRIAL FIBRILLATION WITH RAPID VENTRICULAR RESPONSE WITH ABERRANT CONDUCTION OR VENTRICULAR PREMATURE COMPLEXES INCOMPLETE RIGHT BUNDLE BRANCH BLOCK SEPTAL MYOCARDIAL INFARCTION, PROBABLY OLD SIMILAR TO 09/26/17 Electronically Signed On 06-03-2018 21:40:11 EDT by Gold Victoria
--- NOTE | 2018-06-04 07:41 | REP ---
Portable chest, 08:00 p.m., single upright AP view: Comparison is the PA and lateral chest of 09/30/2017. The large right upper lobe cavitary density identified on the comparison study is no longer present. There are no infiltrates. There are no pleural effusions. There are no masses or nodules. The lung montelongo are clear. There are old left rib fractures, unchanged. Cardiac size is normal. The silverio, mediastinum, skeletal structures otherwise are unremarkable. Impression: There are no acute cardiopulmonary findings. The previous large right upper lobe cavitary density is no longer present. Electronically Signed by Esdras Valerio MD 06/04/2018 07:33 A
== END 2018-06-03 22:03 | disposition left against medical advice (07) ==
LOC: M ED 19:06
DX: E87.1 Hypo-osmolality and hyponatremia (principal); R29.6 Repeated falls; I48.91 Unspecified atrial fibrillation; J44.9 Chronic obstructive pulmonary disease, unspecified; F10.10 Alcohol abuse, uncomplicated; R56.9 Unspecified convulsions; F17.200 Nicotine dependence, unspecified, uncomplicated; Z79.899 Other long term (current) drug therapy; Z79.82 Long term (current) use of aspirin